=== PATIENT | female | born 1955 | race Caucasian/White ===

== ENCOUNTER 2020-07-08 16:45 | Emergency (ER) | payer SELFPAY ==
[~2020-07-08] VITALS: Ht 157.5 cm; Wt 86.0 kg
--- NOTE | 2020-07-08 17:49 | NUR ---
CALLED FOR PT. PT NOT IN LOBBY
[2020-07-08 17:50] VITALS: BP 163/79
--- NOTE | 2020-07-08 19:37 | NUR ---
NIL X 1
--- NOTE | 2020-07-08 20:05 | NUR ---
NIL X 3
== END 2020-07-08 20:07 | disposition home or self-care (01) ==
LOC: ED 20:01
DX: R11.10 Vomiting, unspecified (principal); M54.9 Dorsalgia, unspecified; Z53.21 Procedure and treatment not carried out due to patient leaving prior to being seen by health care provider